=== PATIENT | male | born 1990 | race Caucasian/White ===

== ENCOUNTER 2018-09-07 21:56 | Emergency (ER) | payer OTHER ==
--- NOTE | 2018-09-07 22:11 | ER Report ---
History and Physical Time Seen By MD: 22:11 Hx. of Stated Complaint: PATIENT SLIPPED AND FELL ON ICE, HIT FACE ON GROUND. PATIENT HAS LACERATION TO UPPER LIP. HPI/ROS CHIEF COMPLAINT: Fall with upper lip injury HISTORY OF PRESENT ILLNESS: This is a 28 year old male. He fell today, landed on face. Laceration to upper lip. Had been drinking. Last tetanus 1-2 years ago. Denies other injuries. No LOC. No headache. No dizziness. No vision changes. Allergies: Coded Allergies: amoxicillin (Verified Allergy, Unknown, 09/07/18) Home Meds Active Scripts Cephalexin Monohydrate (CEPHALEXIN) 500 Mg Cap, 500 MG PO Q6H, #20 CAP 0 Refills Prov:RYNE ATKINS MD 09/07/18 Reviewed Nurses Notes: Yes Constitutional Vital Sign - Last 24 Hours 09/07/18 09/07/18 09/07/18 09/07/18 22:00 22:11 22:30 23:00 Temp 98.3 Pulse 80 83 Resp 16 B/P (MAP) 144/96 123/87 (99) 125/72 (89) Pulse Ox 92 92 O2 Delivery Room Air Physical Exam General: Alert, no distress. ENT: upper lip over filtrum, no crossing the jed border. 3cm. No facial pain other than superficial tissues including jaw, maxillary, zygoam, nose, or orbits. Neuro: No deficits. Eyes: PERRL Medical Decision Making ED Course/Re-evaluation ED Course Procedure: Laceration Repair Verbal consent from patient after discussing repair options, risks and benefits. Wound cleaned extensively with Hibiclens and saline. Anesthesia: Local 1% lidocaine without epinephrine and 0.5% bupivacaine without epinephrine. Location: Upper lip on the philtrum, does not cross vermilion border. Length: 3 cm. Character: Subcutaneous. There were no deep structures involved. Wound repair: 6 interrupted 5-0 Prolene sutures. The wound repair was simple and performed by myself. Wound care instructions discussed. Sutures need to be removed in 5-7 days. Cephalexin 500mg four times a day for 5 days. Decision to Disposition Date: Sep 07, 2018 Decision to Disposition Time: 23:04 Depart Departure Latest Vital Signs Vital Signs Date Time Temp Pulse Resp B/P (MAP) Pulse Ox O2 Delivery O2 Flow Rate FiO2 09/07/18 23:00 125/72 (89) 09/07/18 22:11 83 92 09/07/18 22:00 98.3 16 Room Air Impression: Primary Impression: Laceration of frenum of upper lip Condition: Improved Disposition: HOME OR SELF-CARE New Scripts Cephalexin Monohydrate (CEPHALEXIN) 500 Mg Cap 500 MG PO Q6H, #20 CAP 0 Refills Prov: RYNE ATKINS MD 09/07/18 Patient Instructions: Laceration (ED) Additional Instructions: Wound Care: Wash the wound once a day with soap and water. Dry the wound and apply a small amount of antibiotic ointment with a clean dressing. If the dressing becomes wet or dirty, repeat cleaning and dressing as above. No soaking the wound; no swimming. Stitches need to be removed in 5-7 days. Pain Control: Use Tylenol or ibuprofen for pain. Using and ice pack can help reduce swelling. Antibiotic: Cephalexin 500mg 4 times a day for 5 days. Problem Qualifiers Primary Impression: Laceration of frenum of upper lip Encounter type: initial encounter Qualified Codes: S01.511A - Laceration without foreign body of lip, initial encounter RYNE ATKINS MD Sep 07, 2018 22:11
[2018-09-07 23:00] VITALS: BP 125/72
[2018-09-07] MEDS ORDERED: CEPH500C24 PO (23:06)
== END 2018-09-07 23:12 | disposition home or self-care (01) ==
LOC: ER 22:04
DX: S01.511A Laceration without foreign body of lip, initial encounter (principal); W00.0XXA Fall on same level due to ice and snow, initial encounter
CPT/HCPCS: 99283

== ENCOUNTER → 2018-09-08 | Outpatient (CLI) | payer OTHER ==
[~2018-09-08] MED LIST: CEPH500C24 PO
--- NOTE | 2018-09-08 11:35 | RADIOLOGY IMAGING REPORT ---
FACILITY: [facility] PATIENT NAME: Tam García : 1990 MR: [id number] V: [id number] EXAM DATE: ORDERING PHYSICIAN: ALEN PRESSLEY TECHNOLOGIST: Location: [facility] Patient: Tam García : 1990 Visit/Account:[id number] Date of Sevice: 09/08/2018 CT BRAIN WITH AND WITHOUT Indication: Visual disturbances Comparison: None. Technique: Head CT vertex to the skull base obtained. One of the following dose optimization techniqu es was utilized in the performance of this exam: automated exposure control; adjustment of the mA and /or kV according to the patient's size; or use of an iterative reconstruction technique. Specific de tails can be referenced in the facility's radiology CT exam operational policy. Contrast: 60 mL Isovue-370 IV. Findings: Brain: Khan-white matter differentiation and cortex are maintained. Ventricles and sulci:Ventricles and sulci are symmetric in size. There is no abnormal extra-axial flu id collection or mass. Paranasal sinuses:Visualized paranasal sinuses and mastoid air cells are clear. Calvarium: There is a fracture the base of the right orbit. This is best seen on coronal images. Th e medial and lateral wall of the right orbit are intact. Left orbit is intact. Nasal bones are inta ct. Orbits and soft tissues: There is a large amount of gas inferior aspect of the right globe, with some gas extending into the extraconal and intraconal space. The position of the right globe is normal. Left globe and left orbits are normal. Normal enhancement is seen of the right and left cerebral and cerebellar hemispheres. The basilar ar [place], [place] of [place], and the anterior, middle, posterior cerebral arteries are patent. Normal vic ining veins of the brain are seen. Impression: 1. No evidence of infarct hemorrhage or mass. 2. Minimally displaced fracture of the inferior wall of the right orbit, with intraconal and extraco nal gas identified adjacent to the right globe. This was called by Dr. Head to ALEN PRESSLEY on 09/08/2018 11:18 AM Report Dictated By: Obie Head at 09/08/2018 11:18 AM Report E-Signed By: Obie Head at 09/08/2018 11:30 AM WSN:[id number]
== END ==
LOC: CT 10:12
PROVIDERS: ATTEND Physician Assistant
DX: H02.842 Edema of right lower eyelid (principal); H02.841 Edema of right upper eyelid; H53.8 Other visual disturbances; H57.11 Ocular pain, right eye
CPT/HCPCS: 70470; Q9967